=== PATIENT | female | born 1960 | race Caucasian/White ===

== ENCOUNTER 2023-05-13 09:21 | Outpatient (CLI) | payer BC, SELFPAY | END 2023-05-13 09:22 | disposition home or self-care (01) | PROVIDERS: PCP Nurse Practitioner Family; Visit Provider Nurse Practitioner Family | DX: R30.0 Dysuria (principal); M54.9 Dorsalgia, unspecified; R31.9 Hematuria, unspecified; R39.15 Urgency of urination | CPT/HCPCS: 87086 ==